=== PATIENT | female | born 1940 | race Two or more races ===

== ENCOUNTER 2024-06-24 19:23 | Emergency (ER) | payer OTHER, SELFPAY ==
[2024-06-24 19:26] VITALS: BMI 24.6
--- NOTE | 2024-06-24 19:40 | PC.NURSE ---
no answer in lobby when called for vital signs
--- NOTE | 2024-06-24 19:57 | PC.NURSE ---
no answer in lobby when called for vital signs
--- NOTE | 2024-06-24 20:14 | PC.NURSE ---
no answer in lobby when called for vital signs
== END 2024-06-24 20:55 | disposition left against medical advice (07) ==
LOC: SERX 20:27
PROVIDERS: Emergency Provider Emergency Medicine
DX: Z53.21 Procedure and treatment not carried out due to patient leaving prior to being seen by health care provider (principal)

== ENCOUNTER 2024-07-02 06:19 | Emergency (ER) | payer OTHER, MEDICAID, SELFPAY ==
[2024-07-02 06:20] VITALS: TEMP 36.7
--- NOTE | 2024-07-02 06:30 | EKG_ITS ---
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
--- NOTE | 2024-07-02 06:31 | PD.EDRME ---
Rapid Medical Screening Exam RME Arrival date/time: 07/02/24 06:19 83-year-old female presents the emergency department today for complaint of upper abdominal pain and heartburn Chief Complaint: Abdominal Pain Time Seen by Provider: 07/02/24 06:24
--- NOTE | 2024-07-02 06:32 | XR_ITS ---
Examination: CT abdomen and pelvis without contrast. Coronal 3-D reconstructions. Sagittal 2-D reconstructions. Date and time of exam:July 02, 2024 0736 hours INDICATIONS: Epigastric pain beginning several days ago CTDI: vol (mGy): 6.44 DLP: (mGycm): 253 Technique: Axial images of the abdomen have been obtained, 3 mm slice thickness Intravenous contrast material has not been administered. Low dose protocols were performed. One or more of the following dose reduction techniques were used; automated exposure control, adjustment of the mA and/or KV according to patient size, use of iterative reconstruction technique. Findings: No focal liver lesions Patient motion obscures gallbladder detail Spleen is not enlarged No pancreatic mass Aorta normal size No hydronephrosis or renal calculi No bowel obstruction Abundant stool throughout the colon No diverticulitis Atrophic uterus No adnexal mass Contracted urinary bladder Severe osteopenia with grade 1 anterolisthesis L5 on S1 IMPRESSION: The entire study is significantly limited by continual patient motion No renal or ureteral calculi, no hydronephrosis No bowel obstruction
--- NOTE | 2024-07-02 06:32 | XR_ITS ---
Examination: Abdomen sonogram, Limited Date and time of exam: July 02, 2024 0745 hours INDICATIONS: Right upper abdominal pain one month, severe today Technique: Real-time negrete scale transabdominal sonographic images of the upper abdomen obtained. Findings: Normal gallbladder Normal common bile duct 0.3 cm Pancreas obscured by bowel gas Liver 14 cm no focal liver lesions Normal hepatopedal portal venous flow Patent IVC IMPRESSION: Negative examination
[2024-07-02] MEDS: METOCLOPRAMIDE 5 MG TABLET 10 MG PO (06:52)
[2024-07-02 07:06] LABS: Basophils % (Auto) 0 % (0-2.5); Eosinophils # (Auto) 0.1 Thou/mm3 (0.0-0.5); Eosinophils % (Auto) 2 % (0-10); Hematocrit 37.1 % (36.0-46.0); Hemoglobin 12.7 g/dL (12.0-16.0); Immature Granulocytes % (Auto) 0 % (0-0); Immature Granulocytes Auto 0.01 Thou/mm3 (0.00-0.00); Lymphocytes # (Auto) 1.1 Thou/mm3 (1.0-4.8); Lymphocytes % (Auto) 34 % (10-50); Mean Corpuscular HGB Conc 34.2 g/dl (31.0-37.0); Mean Corpuscular Hemoglobin 32.1 pg (25.0-35.0); Mean Corpuscular Volume 94 fL (80-100); Monocytes # (Auto) 0.4 Thou/mm3 (0.0-0.8); Monocytes % (Auto) 11 % (0-12); Neutrophils # (Auto) 1.7 Thou/mm3 (1.8-7.7); Neutrophils % (Auto) 52 % (37-80); Nucleated Red Blood Cell % 0 /100 WBC (0); Platelet Count 152 Thou/mm3 (140-440); RDW Standard Deviation 42.8 fL (36.4-46.3); Red Blood Count 3.96 Miln/mm3 (4.00-5.20); White Blood Count 3.3 Thou/mm3 (3.6-11.0)
[2024-07-02 07:09] VITALS: BP 144/70; PULSE 70; RESP 18; TEMP 36.6; O2SAT 95
[2024-07-02 07:20] VITALS: BMI 24.5
[2024-07-02 07:32] LABS: Collection Type, Urine Clean Catch; Squamous Epithelial Cell,Urine 0 /hpf (0-5)
[2024-07-02 07:34] LABS: Alanine Aminotransferase 9 U/L (10-49); Albumin, Serum 4.2 gm/dL (3.4-4.8); Albumin/Globulin Ratio 1.7 (1.2-2.2); Alkaline Phosphatase 57 U/L (46-116); Anion Gap 6 (7-16); Aspartate Amino Transferase 16 U/L (0-34); BUN/Creatinine Ratio 23 Ratio (12-20); Bilirubin,Total 0.7 mg/dL (0.3-1.2); Blood Urea Nitrogen 18 mg/dL (9-23); Calcium 9.9 mg/dL (8.3-10.6); Calcium (Corrected) 9.9 mg/dL (8.5-10.1); Carbon Dioxide 30.2 mMol/L (20.0-31.0); Chloride 106 mMol/L (98-107); Creatinine (Component) 0.8 mg/dL (0.6-1.3); Estimated Creatinine Clearance 42.8 mL/min (>60); Globulin 2.5 gm/dL (2.3-3.5); Glucose 93 mg/dL (74-106); Lipase 42 U/L (12-53); Osmolality,Calculated 285 (275-295); Potassium 3.9 mMol/L (3.4-5.1); Sodium 142 mMol/L (136-145); Total Protein 6.7 gm/dL (5.7-8.2); Troponin I < 0.002 ng/mL (0.0-0.045); eGFR > 60 See Note
[2024-07-02 07:38] LABS: Bilirubin,Urine Negative (Negative); Clarity,Urine Clear (Clear/Hazy); Color,Urine Colorless (Lt Yel-Yel); Glucose, Urine Negative (Negative); Ketones,Urine Negative (Negative)
[2024-07-02 07:39] LABS: Blood,Urine Negative (Negative); Culture Indicated,Urine Not Indicated; Leukocyte Esterase,Urine Negative (Negative); Nitrite,Urine Negative (Negative); Protein,Urine Negative (Neg - Trace); RBC,Urine 3 /hpf (0-3); Urobilinogen,Urine Negative mg/dL (0.0-1.0); WBC,Urine 4 /hpf (0-5)
[2024-07-02 08:57] VITALS: BP 149/65; PULSE 64; RESP 14; TEMP 36.5; O2SAT 97
[2024-07-02] MEDS: LIDOCAINE VISCOUS 2% 15 ML UDC PO (09:57)
[2024-07-02] MEDS: MG HYD/AL HYD/SIME (Maalox Reg) SUSP 30 ML UDC PO (09:57)
[2024-07-02] MEDS: ACETAMINOPHEN 325 MG TABLET 650 MG PO (09:58)
[2024-07-02 10:33] VITALS: BP 137/68; PULSE 68; RESP 18; TEMP 36.6; O2SAT 96
--- NOTE | 2024-07-02 10:47 | PD.EDABDPN ---
ED Abdominal Pain RME/HPI General Chief Complaint: Abdominal Pain Stated complaint: HEARTBURN, ABD PAIN Time seen by provider: 07/02/24 06:24 Arrival date/time: 07/02/24 06:19 RME / HPI RME / HPI narrative: 07/02/24 06:19 83-year-old female presents the emergency department today for complaint of upper abdominal pain and heartburn DR. REYNOSO MAIN ED EVALUATION 83 year old female with history of gastritis presents to the ED brought in by daughter for evaluation of abdominal pain beginning yesterday. Pain described as a burning sensation that initially was located most to the epigastric region. However, today pain is radiating down just below umbilicus, rating as moderate. No nausea or vomiting reported. No fevers, chills. No diarrhea, constipation. Daughter mentioned patient is on Omeprazole 40mg daily and Mylanta and Viscous Lidocaine as needed. Patient states she last had a bowel movement this morning and normal for her. States she has not passed gas today. Related Data Home Medications ?Medication ?Instructions ?Recorded ?Confirmed albuterol sulfate 90 mcg/actuation 1 puff inhalation Q4HR PRN asthma 10/05/21 02/21/22 aerosol inhaler ibandronate 150 mg tablet 150 mg PO QDAY 10/05/21 02/21/22 meloxicam 15 mg tablet 15 mg PO QPM 02/21/22 02/21/22 montelukast 10 mg tablet 10 mg PO QPM 02/21/22 02/21/22 silver sulfadiazine 1 % topical See Rx Instructions .Route .COMPLEX 02/21/22 02/21/22 cream (SSD) Previous Rx's ?Medication ?Instructions ?Recorded guaifenesin 100 mg/5 mL oral 100 mg (5 mL) PO Q4H PRN 02/21/22 liquid (Tussin) congestion #473 mL methocarbamol 750 mg tablet 750 mg PO Q8H #20 tabs 08/16/22 sucralfate 100 mg/mL oral 10 ml PO QID #400 mL 07/17/23 suspension (Carafate) sucralfate 100 mg/mL oral 10 ml PO TID 3 days #90 mL 07/02/24 suspension (Carafate) Allergies Allergy/AdvReac Type Severity Reaction Status Date / Time No Known Allergies Allergy Verified 07/02/24 06:20 Review of Systems Review of Systems Narrative Review of Systems: GEN: No fever, no chills, no weight loss EYES: No discharge, no visual changes, no pain HEENT: No ear pain, no congestion, no sore throat PULM: No shortness of breath, no cough, no congestion CV: No chest pain, no dyspnea on exertion, no palpitations GI: No nausea, no vomiting, no diarrhea,+ pain, no constipation : No frequency, no urgency, no dysuria MUSC/SKEL: No joint pain, no back pain SKIN: No rash NEURO: No weakness, no headache Past Medical History Past Medical History CARDIAC: Positive Hypercholesterolemia RESPIRATORY: Positive Asthma GASTROINTESTINAL: Positive Gastroesophageal Reflux Disease MUSCULOSKELETAL: Positive Arthritis Surgical History SURGICAL: Positive Eye Surgery Social History SMOKING STATUS: Never smoker ED Exam Narrative Physical exam: GENERAL APPEARANCE: alert and oriented x 4, well-developed, well-nourished, no acute distress HEENT: Normocephalic, atraumatic; pupils equal, round, reactive to light; EOMI; mucous membranes pink, moist; oropharynx clear NECK: Supple LUNGS: CTABL; no wheezes, no rales, no rhonchi HEART: Regular rate, regular rhythm; normal S1, S2; no murmurs ABDOMEN: non distended; active BS; soft, no tenderness, no guarding, no rebound; no masses, no organomegaly, no hernia BACK: no CVA tenderness EXTREMITIES: atraumatic; no edema NEUROLOGIC: awake; alert and oriented x4; cranial nerves II-XII grossly intact; no focal sensory or motor deficits PSYCHIATRIC: appropriate mood and affect SKIN: warm, dry, normal color; no rashes Course Quality Measures none Orders Category Date Time Status EKG (ED ONLY) *Do not use* NOW Care 07/02/24 06:[address] abdomen pelvis wo con Stat Exams 07/02/24 06:32 Completed EKG (ED Only) Stat Exams 07/02/24 06:30 Draft US gall bladder Stat Exams 07/02/24 06:32 Completed CBC Stat Lab 07/02/24 06:47 Completed Comprehensive Metabolic Panel Stat Lab 07/02/24 06:47 Completed Lipase Stat Lab 07/02/24 06:47 Completed Troponin I Stat Lab 07/02/24 06:47 Completed UA, C/S IF [Urinalysis, C/S if Indicated] Stat Lab 07/02/24 07:14 Completed Acetaminophen Tab [Tylenol Tab] Med 07/02/24 09:47 Discontinued 650 mg PO X1 ONE Lidocaine 2% Viscous [Xylocaine 2% Viscous] Med 07/02/24 09:46 Discontinued 15 ml PO X1 ONE Metoclopramide [Reglan] Med 07/02/24 06:30 Discontinued 10 mg PO X1 ONE Sucralfate Susp [Carafate Susp] Med 07/02/24 09:46 Discontinued 1 gm PO X1 ONE mg Hyd/Al Hyd/Prema Susp [Maalox Susp] Med 07/02/24 09:46 Discontinued 30 ml PO X1 ONE Vital Signs Vital signs: Vital Signs Temperature 98.0 F 07/02/24 06:20 Abdominal Pain MDM MDM Narrative MDM Narrative:: Farida Parker am scribing for and in the presence of Dr. Reynoso. 1150: Patient reports feeling better after GI cocktail and Sucralfate. Patients daughter mentioned they have an appointment with PCP on 07/09/2024 and states she will be requesting an EGD to further assess symptoms. We reviewed all the results, analysis, and treatment plans. Patient is amenable to discharge. Strict return precautions were outlined. Patient was discharged in stable condition. Patient data External records reviewed:: [facility] previous records (I reviewed ED visit on 07/17/2023 for abdominal pain) Clinical information provided by:: patient Social determinants that could affect healthcare access:: none Patient has the following chronic illnesses:: Gastritis How is presenting disease/condition affected by chronic disease/condition?: exacerbated by Evaluation data The following diagnostics were reviewed and interpreted by me:: lab results, radiology exam(s) and EKG tracing(s) (EKG @ 06:37 am. Sinus rhythm, rate 72, no acute ischemic changes, no STEMI. ) Lab and/or radiology exams considered but not ordered:: None Interpretation Summary: Ordering Physician: Amari GARCIA)Jamil NP Date of Service: 07/02/24 Procedure(s): CT abdomen pelvis wo con Accession Number(s): [id number] cc: Jamil Fitzpatrick NP, NP; Alexa BirminghamP; Gunnar Gatica MD~ Examination: CT abdomen and pelvis without contrast. Coronal 3-D reconstructions. Sagittal 2-D reconstructions. Date and time of exam:July 02, 2024 0736 hours INDICATIONS: Epigastric pain beginning several days ago CTDI: vol (mGy): 6.44 DLP: (mGycm): 253 Technique: Axial images of the abdomen have been obtained, 3 mm slice thickness Intravenous contrast material has not been administered. Low dose protocols were performed. One or more of the following dose reduction techniques were used; automated exposure control, adjustment of the mA and/or KV according to patient size, use of iterative reconstruction technique. Findings: No focal liver lesions Patient motion obscures gallbladder detail Spleen is not enlarged No pancreatic mass Aorta normal size No hydronephrosis or renal calculi No bowel obstruction Abundant stool throughout the colon No diverticulitis Atrophic uterus No adnexal mass Contracted urinary bladder Severe osteopenia with grade 1 anterolisthesis L5 on S1 IMPRESSION: The entire study is significantly limited by continual patient motion No renal or ureteral calculi, no hydronephrosis No bowel obstruction Dictated By: Gunnar Gatica MD Signed By: <Electronically signed by Gunnar Gatica MD in OV>07/02/24 0758 Ordering Physician: Jamil Fitzpatrick NP, NP Date of Service: 07/02/24 Procedure(s): US gall bladder Accession Number(s): [id number] cc: Jamil Fitzpatrick NP, NP; Alexa BirminghamP; Gunnar Gatica MD~ Examination: Abdomen sonogram, Limited Date and time of exam: July 02, 2024 0745 hours INDICATIONS: Right upper abdominal pain one month, severe today Technique: Real-time negrete scale transabdominal sonographic images of the upper abdomen obtained. Findings: Normal gallbladder Normal common bile duct 0.3 cm Pancreas obscured by bowel gas Liver 14 cm no focal liver lesions Normal hepatopedal portal venous flow Patent IVC IMPRESSION: Negative examination Dictated By: Gunnar Gatica MD Signed By: <Electronically signed by Gunnar Gatica MD in OV>07/02/24 0923 Medications / Prescriptions Medications or Prescriptions considered but not ordered:: None Medication administrations:: Medication Administration History Discontinued Medications Acetaminophen (Acetaminophen 325 Mg Tablet) 650 mg PO X1 ONE Stop: 07/02/24 09:48 Last Admin: 07/02/24 09:58 Dose: 650 mg Documented By: GM Al Hydrox/Mg Hydrox/Simethicone (Mg Hyd/Al Hyd/Prema (Maalox Reg) Susp 30 Ml Udc) 30 ml PO X1 ONE Stop: 07/02/24 09:47 Last Admin: 07/02/24 09:57 Dose: 30 ml Documented By: GM Lidocaine HCl (Lidocaine Viscous 2% 15 Ml Udc) 15 ml PO X1 ONE Stop: 07/02/24 09:47 Last Admin: 07/02/24 09:57 Dose: 15 ml Documented By: GM Metoclopramide HCl (Metoclopramide 5 Mg Tablet) 10 mg PO X1 ONE Stop: 07/02/24 06:31 Last Admin: 07/02/24 06:52 Dose: 10 mg Documented By: CP Sucralfate (Sucralfate Susp 1 Gm/10 Ml Udc) 1 gm PO X1 ONE Stop: 07/02/24 09:47 Last Admin: 07/02/24 11:25 Dose: 1 gm Documented By: GM See above Consultations Consultation(s) initiated? (list below): No Diagnosis Differential diagnosis abdominal pain: abdominal pain, calculus of kidney, constipation, diverticulitis, gastroenteritis, small bowel obstruction and other (gastritis) Most likely diagnosis given after review of the tests above:: Gastritis Admission Indicated Admission indicated?: not indicated Admission Request Was there a request for admission?: No Disposition Plan Disposition Plan: Discharge Discharge Attestation Discharge Attestation: The patient and all family members were given an opportunity to ask questions and understood the discharge instructions. Discharge instructions specifically effects, indications for sooner follow up or return to the emergency department, and the expected course of current diagnosis. Patient condition: Stable Discharge Plan Plan Patient Disposition: HOME (Self Care) Prescriptions/Referrals Prescriptions/Med Rec: New sucralfate [Carafate] 100 mg/mL suspension 10 ml PO TID 3 Days Qty: 90 0RF Rx Instructions: swish in mouth and swallow; use after food/drink No Action albuterol sulfate 90 mcg/actuation HFA aerosol inhaler 1 puff INHALATION Q4HR PRN (Reason: asthma ) Patient Comments: TOME GRACIA INHALACI N POR V A ORAL CADA CUATRO HORAS CUANDO SEA NECESARIO ibandronate 150 mg tablet 150 mg PO QDAY Patient Comments: TOME GRACIA TABLETA POR V A ORAL GRACIA VEZ CADA 30 LARA silver sulfadiazine [SSD] 1 % cream See Rx Instructions .ROUTE .COMPLEX Patient Comments: APPLY TO SKIN/BURN AREA ONCE A DAY Rx Instructions: APPLY TO SKIN/BURN AREA ONCE A DAY meloxicam 15 mg tablet 15 mg PO QPM Patient Comments: TOME 1 TABLETA POR LA BOCA EN LA NOCHE PARA ARTRITIS montelukast 10 mg tablet 10 mg PO QPM Patient Comments: TOME 1 TABLETA POR LA BOCA EN LA NOCHE PARA ASTHMA guaifenesin [Tussin] 100 mg/5 mL liquid 100 mg PO Q4H PRN (Reason: congestion) Qty: 473 0RF sucralfate [Carafate] 100 mg/mL suspension 10 ml PO QID Qty: 400 0RF Rx Instructions: swish in mouth and swallow; use after food/drink methocarbamol 750 mg tablet 750 mg PO Q8H Qty: 20 0RF Referrals: Alexa Birmingham FNP [Primary Care Provider] - In 1 week Problem List Clinical Impression: Gastritis Patient/Caregiver Discharge Instructions Education Materials: ED Gastritis (Adult) Print Language: Hungarian Stand Alone Forms: Casie Award Info., Patient Portal Info Letter
[2024-07-02] MEDS: SUCRALFATE SUSP 1 GM/10 ML UDC PO (11:25)
[2024-07-02 12:20] VITALS: BP 127/58; PULSE 64; RESP 15; TEMP 36.6; O2SAT 96
== END 2024-07-02 12:23 | disposition home or self-care (01) ==
PROVIDERS: Nurse Practitioner Primary Care; Emergency Provider Emergency Medicine; PCP Registered Nurse Community Health
DX: K29.70 Gastritis, unspecified, without bleeding (principal); R10.13 Epigastric pain; R10.11 Right upper quadrant pain; R94.31 Abnormal electrocardiogram [ECG] [EKG]; E78.00 Pure hypercholesterolemia, unspecified
CPT/HCPCS: 36415; 74176; 76705; 80053; 81001; 83690; 84484; 85025; 93005; 99284; J3490; A9270

== ENCOUNTER 2024-09-04 08:02 | Emergency (ER) | payer MEDICAID, SELFPAY ==
[2024-09-04 08:16] VITALS: BP 136/78; PULSE 73; RESP 19; TEMP 36.6; O2SAT 95; BMI 24.0
[2024-09-04] MEDS: METOCLOPRAMIDE 5 MG TABLET PO (09:48)
[2024-09-04] MEDS: LIDOCAINE VISCOUS 2% 15 ML UDC PO (09:49)
[2024-09-04] MEDS: MG HYD/AL HYD/SIME (Maalox Reg) SUSP 30 ML UDC PO (09:49)
[2024-09-04 10:43] VITALS: BP 142/65; PULSE 65; RESP 19; TEMP 36.6; O2SAT 96
--- NOTE | 2024-09-04 11:08 | PD.EDABDPN ---
ED Abdominal Pain RME/HPI General Chief Complaint: Abdominal Pain Stated complaint: Burning middle upper abdomen X 2 months Time seen by provider: 09/04/24 08:18 Arrival date/time: 09/04/24 08:02 83-year-old female presents the emergency department today for complaint of upper abdominal pain and heartburn Pain described as a burning sensation that initially was located most to the epigastric region. However, today pain is radiating down just below umbilicus, rating as moderate. No nausea or vomiting reported. No fevers, chills. No diarrhea, constipation. Daughter mentioned the patient does have a recent endoscopy she is awaiting her results from [place].patient is on Omeprazole 40mg daily and Mylanta and Viscous Lidocaine as needed. Patient states she last had a bowel movement this morning and normal for her. States she has not passed gas today. Source: patient Related Data Home Medications ?Medication ?Instructions ?Recorded ?Confirmed albuterol sulfate 90 mcg/actuation 1 puff inhalation Q4HR PRN asthma 10/05/21 02/21/22 aerosol inhaler ibandronate 150 mg tablet 150 mg PO QDAY 10/05/21 02/21/22 meloxicam 15 mg tablet 15 mg PO QPM 02/21/22 02/21/22 montelukast 10 mg tablet 10 mg PO QPM 02/21/22 02/21/22 silver sulfadiazine 1 % topical See Rx Instructions .Route .COMPLEX 02/21/22 02/21/22 cream (SSD) Previous Rx's ?Medication ?Instructions ?Recorded guaifenesin 100 mg/5 mL oral 100 mg (5 mL) PO Q4H PRN 02/21/22 liquid (Tussin) congestion #473 mL methocarbamol 750 mg tablet 750 mg PO Q8H #20 tabs 08/16/22 sucralfate 100 mg/mL oral 10 ml PO QID #400 mL 07/17/23 suspension (Carafate) lidocaine HCl 2 % mucosal solution 5 ml PO BID PRN abdominal pain 07/02/24 #100 mL Allergies Allergy/AdvReac Type Severity Reaction Status Date / Time No Known Allergies Allergy Verified 09/04/24 08:09 Review of Systems Review of Systems Systems Reviewed: All systems reviewed, normal except as documented Narrative Review of Systems: GEN: No fever, no chills, no weight loss EYES: No discharge, no visual changes, no pain HEENT: No ear pain, no congestion, no sore throat PULM: No shortness of breath, no cough, no congestion CV: No chest pain, no dyspnea on exertion, no palpitations GI: No nausea, no vomiting, no diarrhea,+ pain, no constipation : No frequency, no urgency, no dysuria MUSC/SKEL: No joint pain, no back pain SKIN: No rash NEURO: No weakness, no headache Course Quality Measures none Orders Category Date Time Status Lidocaine 2% Viscous [Xylocaine 2% Viscous] Med 09/04/24 08:32 Discontinued 15 ml PO X1 ONE Metoclopramide [Reglan] Med 09/04/24 08:32 Discontinued 5 mg PO X1 ONE mg Hyd/Al Hyd/Prema Susp [Maalox Susp] Med 09/04/24 08:32 Discontinued 30 ml PO X1 ONE Vital Signs Vital signs: Vital Signs Temperature 97.8 F 09/04/24 08:16 Pulse Rate 73 09/04/24 08:16 Respiratory Rate 19 09/04/24 08:16 Blood Pressure 136/78 H 09/04/24 08:16 Pulse Oximetry (%) 95 09/04/24 08:16 Oxygen Delivery Method Room Air 09/04/24 08:16 Abdominal Pain MDM MDM Narrative MDM Narrative:: Patient reports feeling better after GI cocktail. Patients daughter mentioned they have an appointment with PCP In 3 weeks for her endoscopy results.No labs completed today due to patient's symptoms only gastritis daughter states she will follow up with PCP on Friday.. Patient is amenable to discharge. Strict return precautions were outlined. Patient was discharged in stable condition. Patient data External records reviewed:: [facility] previous records (I reviewed ED visit on 07/17/2023 for abdominal pain) Clinical information provided by:: patient Social determinants that could affect healthcare access:: none Patient has the following chronic illnesses:: Gastritis How is presenting disease/condition affected by chronic disease/condition?: exacerbated by Evaluation data The following diagnostics were reviewed and interpreted by me:: other (specify) Lab and/or radiology exams considered but not ordered:: None Interpretation Summary: none Medications / Prescriptions Medications or Prescriptions considered but not ordered:: None Medication administrations:: Medication Administration History Discontinued Medications Al Hydrox/Mg Hydrox/Simethicone (Mg Hyd/Al Hyd/Prema (Maalox Reg) Susp 30 Ml Udc) 30 ml PO X1 ONE Stop: 09/04/24 08:33 Last Admin: 09/04/24 09:49 Dose: 30 ml Documented By: DILIP Lidocaine HCl (Lidocaine Viscous 2% 15 Ml Udc) 15 ml PO X1 ONE Stop: 09/04/24 08:33 Last Admin: 09/04/24 09:49 Dose: 15 ml Documented By: DILIP Metoclopramide HCl (Metoclopramide 5 Mg Tablet) 5 mg PO X1 ONE Stop: 09/04/24 08:33 Last Admin: 09/04/24 09:48 Dose: 5 mg Documented By: DILIP See above Consultations Consultation(s) initiated? (list below): No Diagnosis Differential diagnosis abdominal pain: abdominal pain, calculus of kidney, constipation, diverticulitis, gastroenteritis, small bowel obstruction and other (gastritis) Most likely diagnosis given after review of the tests above:: Gastritis Admission Indicated Admission indicated?: not indicated Admission Request Was there a request for admission?: No Disposition Plan Disposition Plan: Discharge Discharge Attestation Discharge Attestation: The patient and all family members were given an opportunity to ask questions and understood the discharge instructions. Discharge instructions specifically effects, indications for sooner follow up or return to the emergency department, and the expected course of current diagnosis. Patient condition: Stable Discharge Plan Plan Patient Disposition: HOME (Self Care) Patient condition on transfer: Stable Prescriptions/Referrals Prescriptions/Med Rec: No Action albuterol sulfate 90 mcg/actuation HFA aerosol inhaler 1 puff INHALATION Q4HR PRN (Reason: asthma ) Patient Comments: TOME GRACIA INHALACI N POR V A ORAL CADA CUATRO HORAS CUANDO SEA NECESARIO ibandronate 150 mg tablet 150 mg PO QDAY Patient Comments: TOME GRACIA TABLETA POR V A ORAL GRACIA VEZ CADA 30 LARA silver sulfadiazine [SSD] 1 % cream See Rx Instructions .ROUTE .COMPLEX Patient Comments: APPLY TO SKIN/BURN AREA ONCE A DAY Rx Instructions: APPLY TO SKIN/BURN AREA ONCE A DAY meloxicam 15 mg tablet 15 mg PO QPM Patient Comments: TOME 1 TABLETA POR LA BOCA EN LA NOCHE PARA ARTRITIS montelukast 10 mg tablet 10 mg PO QPM Patient Comments: TOME 1 TABLETA POR LA BOCA EN LA NOCHE PARA ASTHMA guaifenesin [Tussin] 100 mg/5 mL liquid 100 mg PO Q4H PRN (Reason: congestion) Qty: 473 0RF sucralfate [Carafate] 100 mg/mL suspension 10 ml PO QID Qty: 400 0RF Rx Instructions: swish in mouth and swallow; use after food/drink lidocaine HCl 2 % solution 5 ml PO BID PRN (Reason: abdominal pain) Qty: 100 0RF methocarbamol 750 mg tablet 750 mg PO Q8H Qty: 20 0RF Referrals: Alexa Birmingham FNP [Primary Care Provider] - In 1 week Problem List Clinical Impression: Chronic gastritis Patient/Caregiver Discharge Instructions Discharge Activity: activity as tolerated Education Materials: ED Gastritis (Adult) Additional Instructions: Advised to keep her 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 Medication sent to pharmacy and pt should take as directed. Pt only prescribed a short course to see if it helps symptoms. Pt advised to avoid eating fatty foods, spicy foods, mint, chocolate or large meals, lying down after eating, wearing tight garments or engaging in activities which would increase the pressure in the abdomen. It is better to eat smaller meals and void drinking citrus fruit juices or caffeine-containing drinks. Er Precautions given to return if any worsening symptoms or change in condition Print Language: Serbian Stand Alone Forms: Casie Award Info., Patient Portal Info Letter PA/DIFFUSION FURNACE OPERATOR Supervising Physician MATTI/DIFFUSION FURNACE OPERATOR Supervising Physician: melia
== END 2024-09-04 11:16 | disposition home or self-care (01) ==
PROVIDERS: Emergency Provider Family Medicine; PCP Registered Nurse Community Health
DX: K29.50 Unspecified chronic gastritis without bleeding (principal)
CPT/HCPCS: 99283; J3490; A9270

== ENCOUNTER 2025-01-03 10:40 | Emergency (ER) | payer OTHER, MEDICAID, SELFPAY ==
[2025-01-03 10:41] VITALS: BMI 22.4
--- NOTE | 2025-01-03 11:07 | XR_ITS ---
EXAMINATION: AP chest single view TECHNIQUE: Portable sitting AP chest single view Date and time: January 03, 2025 1119 hours INDICATIONS: Shortness of breath today. FINDINGS: Moderate hyperexpansion No significant cardiac enlargement No pneumonia or pulmonary edema Severe osteopenia IMPRESSION: COPD with moderate hyperexpansion No pneumonia or pulmonary edema
--- NOTE | 2025-01-03 11:07 | XR_ITS ---
Examination: CT abdomen and pelvis without contrast. Coronal 3-D reconstructions. Sagittal 2-D reconstructions. Date and time of exam: January 03, 2025, 1348 hours, comparison July 02, 2024 INDICATIONS: Generalized abdominal pain today CTDI: vol (mGy): 0.75 DLP: (mGycm): 214 Technique: Axial images of the abdomen have been obtained, 3 mm slice thickness Intravenous contrast material has not been administered. Low dose protocols were performed. One or more of the following dose reduction techniques were used; automated exposure control, adjustment of the mA and/or KV according to patient size, use of iterative reconstruction technique. Findings: Mild enlargement cardiac contour No focal liver or splenic lesion No gallstones No pancreatic mass Aorta is not enlarged No renal or ureteral calculi, no hydronephrosis No ascites No pericecal inflammatory change No bowel obstruction or diverticulitis Retroverted atrophic uterus with calcifications No bladder mass Severe osteopenia IMPRESSION: Nonobstructive bowel gas pattern. No renal or ureteral calculi, no hydronephrosis No CT findings of appendicitis or diverticulitis
[2025-01-03 11:11] VITALS: BP 131/80; PULSE 67; RESP 16; TEMP 36.4; O2SAT 96
--- NOTE | 2025-01-03 11:13 | PD.EDABDPN ---
ED Abdominal Pain RME/HPI General Chief Complaint: Abdominal Pain Stated complaint: ABD PAIN SENT BY PMD Time seen by provider: 01/03/25 11:04 Arrival date/time: 01/03/25 10:40 RME / HPI RME / HPI narrative: See [facility] for Dr. Durbin's HPI documentation. Related Data Home Medications ?Medication ?Instructions ?Recorded ?Confirmed albuterol sulfate 90 mcg/actuation 1 puff inhalation Q4HR PRN asthma 10/05/21 02/21/22 aerosol inhaler ibandronate 150 mg tablet 150 mg PO QDAY 10/05/21 02/21/22 meloxicam 15 mg tablet 15 mg PO QPM 02/21/22 02/21/22 montelukast 10 mg tablet 10 mg PO QPM 02/21/22 02/21/22 silver sulfadiazine 1 % topical See Rx Instructions .Route .COMPLEX 02/21/22 02/21/22 cream (SSD) Previous Rx's ?Medication ?Instructions ?Recorded guaifenesin 100 mg/5 mL oral 100 mg (5 mL) PO Q4H PRN 02/21/22 liquid (Tussin) congestion #473 mL methocarbamol 750 mg tablet 750 mg PO Q8H #20 tabs 08/16/22 sucralfate 100 mg/mL oral 10 ml PO QID #400 mL 07/17/23 suspension (Carafate) lidocaine HCl 2 % mucosal solution 5 ml PO BID PRN abdominal pain 07/02/24 #100 mL acetaminophen 300 mg-codeine 30 mg 1 tab PO Q6HR PRN pain #20 tabs 01/03/25 tablet ondansetron 4 mg disintegrating 4 mg PO TID PRN nausea and 01/03/25 tablet vomiting 30 days #10 tabs Allergies Allergy/AdvReac Type Severity Reaction Status Date / Time No Known Allergies Allergy Verified 01/03/25 10:45 Review of Systems Review of Systems Systems Reviewed: All systems reviewed, normal except as documented Past Medical History Past Medical History CARDIAC: Positive Hypercholesterolemia RESPIRATORY: Positive Asthma GASTROINTESTINAL: Positive Gastroesophageal Reflux Disease GENITOURINARY: Negative Renal Disease MUSCULOSKELETAL: Positive Arthritis ENDOCRINE: Negative Diabetes Mellitus Type 1 or Diabetes Mellitus Type 2 HEMATOLOGIC: Negative Sickle Cell Disease Surgical History SURGICAL: Positive Eye Surgery Social History SMOKING STATUS: Never smoker ED Exam Narrative Physical exam: See [facility] for Dr. Durbin's physical exam documentation. Course Quality Measures none Orders Category Date Time Status Saline [Insert IV] NOW Care 01/03/25 11:06 Completed Straight [In and Out Catheter] X1 Care 01/03/25 11:[address] abdomen pelvis wo con Stat Exams 01/03/25 11:07 Completed US gall bladder Stat Exams 01/03/25 13:18 Completed US pelvic complete Stat Exams 01/03/25 13:02 Completed XR chest 1V portable Stat Exams 01/03/25 11:07 Completed Amylase Stat Lab 01/03/25 12:02 Completed BNP [B-Type Natriuretic Peptide] Stat Lab 01/03/25 12:02 Completed Beta Hydroxybutyrate Stat Lab 01/03/25 12:02 Completed Bilirubin,Direct Stat Lab 01/03/25 12:02 Completed Blood Culture (Lab) Stat Lab 01/03/25 11:07 Received CBC Stat Lab 01/03/25 12:02 Completed CMP [Comprehensive Metabolic Panel] Stat Lab 01/03/25 12:02 Completed CRP [C-Reactive Protein] Stat Lab 01/03/25 12:02 Completed ESR [Sed Rate (ESR)] Stat Lab 01/03/25 12:02 Completed Hemoglobin A1C [Glycohemoglobin w (eAG)] Stat Lab 01/03/25 12:02 Completed Lactate (Lactic Acid) Stat Lab 01/03/25 12:02 Completed Lipase Stat Lab 01/03/25 12:02 Completed Magnesium Stat Lab 01/03/25 12:02 Completed Procalcitonin Stat Lab 01/03/25 12:02 Completed TSH [Thyroid Stimulating Hormone] Stat Lab 01/03/25 12:02 Completed UA, C/S IF [Urinalysis, C/S if Indicated] Stat Lab 01/03/25 13:44 Completed Morphine* Inj Med 01/03/25 11:06 Discontinued 2 mg IV X1 ONE Ondansetron Inj [Zofran Inj] Med 01/03/25 11:06 Discontinued 4 mg IVP X1 ONE Sodium Chloride 0.9% 1000 ml [Ns] 1,000 ml Med 01/03/25 11:06 Discontinued IV 999 mls/hr Vital Signs Vital signs: Vital Signs Temperature 97.6 F 01/03/25 11:11 Pulse Rate 67 01/03/25 11:11 Respiratory Rate 16 01/03/25 11:11 Blood Pressure 131/80 H 01/03/25 11:11 Pulse Oximetry (%) 96 01/03/25 11:11 Oxygen Delivery Method Room Air 01/03/25 11:11 Pulse ox is 96% on room air which is adequate. Abdominal Pain MDM MDM Narrative MDM Narrative:: This section includes all my notes and documentations, including HPI, PE, and ED course. Corey Durbin MD HPI: 84 year old female here with several days of abdominal pain. She has trouble localizing the pain, seems to be in LLQ region. Occasional nausea. No vomiting. Eating normally. No fever. No urinary symptoms. No history of abdominal surgery. No other complaints. ROS: All negative except as documented in HPI. Physical Exam: General: Alert and oriented. No acute distress when remaining still. Eyes: Conjunctivae and lids clear. ENT: No nasal congestion. Neck: Supple. Heart: RRR. Lungs: No respiratory distress. Good air movement. No rhonchi, wheezing, rales. Abdomen: Soft with equivocal tenderness, difficult to localize. Normal bowel sounds. No distension. No rebound or guarding. Back: No CVA tenderness. Skin: Warm and dry. Neuro: Alert and oriented X 3. I reviewed all diagnostic test results: My interpretation of the chest x-ray is: NAD. My review of the US pelvis report is: No acute findings. My review of the US gallbladder report is: NAD. My review of the abdominal CT report is: No acute findings. Blood tests and urine tests are unremarkable. At this point, diagnoses include: Abdominal pain of unclear etiology Treatment here included: IVF Morphine 2 mg IV Zofran 4 mg IV Significant improvement noted. Recommended more outpatient workup. Based on my best medical judgment, made decision no further evaluation or treatment indicated at this time. Patient understands and agrees to the discharge instructions customized and printed, see below. Discharge Instructions from Dr. Durbin printed for you: 1. After extensive evaluation, exact cause of your abdominal pain was not determined. But there is no emergency or anything very serious. 2. And there is no serious infection. Such as pneumonia or urinary infection or COVID. 3. Try to eat regular nutritious meals. For good hydration, increase oral fluid and maintain clear urine. If dark or yellow, increase oral fluid. Zofran for nausea/vomiting. 4. See a private doctor on 01/05/2025 for recheck. To make sure there is no serious intra-abdominal condition, ask for help with more investigation not available here in the ER. Such as EGD or scoping the stomach, colonoscopy or scoping the colon, and referral to see assistant librarian. Ask to review all test results and official radiology reports, to make sure you receive all necessary follow-ups and monitoring. 5. Seek immediate medical care with worsening or with any concerns. Instrucciones de gabriel del Dr. Durbin impresas para usted: 1. Tras randi evaluaci?n exhaustiva, no se determin? la causa exacta de ku dolor abdominal. Sin embargo, no se trata de randi emergencia ni de nada grave. 2. No hay ninguna infecci?n grave, joycelyn neumon?a, infecci?n urinaria o COVID-19. 3. Procure comer regularmente alimentos nutritivos. Para randi buena hidrataci?n, aumente la ingesta de l?quidos y procure que ku orina sea heidy. Si la orina es oscura o amarilla, aumente la ingesta de l?quidos. [place] Zofran para las n?useas y los v?mitos. 4. Consulte a un m?dico particular el 05/01/2025 para randi revisi?n. Para descartar cualquier afecci?n intraabdominal grave, solicite pruebas adicionales que no est?n disponibles en urgencias, joycelyn randi endoscopia digestiva gabriel (GIN), randi colonoscopia y randi derivaci?n a un gastroenter?logo. Solicite revisar todos los resultados de las pruebas y los informes radiol?gicos oficiales para asegurarse de recibir el seguimiento y la monitorizaci?n necesarios. 5. Busque atenci?n m?dica inmediata si ku estado empeora o si marcosjayda eliud inquietud. Corey Durbin MD Patient data External records reviewed:: [facility] previous records Clinical information provided by:: patient Social determinants that could affect healthcare access:: none Patient has the following chronic illnesses:: Gastritis How is presenting disease/condition affected by chronic disease/condition?: exacerbated by Evaluation data The following diagnostics were reviewed and interpreted by me:: lab results and radiology exam(s) Lab and/or radiology exams considered but not ordered:: None Interpretation Summary: I reviewed all diagnostic test results: My interpretation of the chest x-ray is: NAD. My review of the US pelvis report is: No acute findings. My review of the US gallbladder report is: NAD. My review of the abdominal CT report is: No acute findings. Blood tests and urine tests are unremarkable. Medications / Prescriptions Medications or Prescriptions considered but not ordered:: None Medication administrations:: Medication Administration History Discontinued Medications Sodium Chloride (Ns) 1,000 mls @ 999 mls/hr IV .Q1H1M ONE Stop: 01/03/25 12:06 Last Infusion: 01/03/25 13:10 Dose: Infused Documented By: Admin: 01/03/25 12:09 Dose: 999 mls/hr Documented By: TM Morphine Sulfate (Morphine Sulf Inj 4 Mg/Ml Vial) 2 mg IV X1 ONE Stop: 01/03/25 11:07 Last Admin: 01/03/25 12:09 Dose: 2 mg Documented By: TM Ondansetron HCl (Ondansetron Inj 2 Mg/Ml Inj 2 Ml) 4 mg IVP X1 ONE; Protocol Stop: 01/03/25 11:07 Last Admin: 01/03/25 12:07 Dose: 4 mg Documented By: TM IVF Morphine 2 mg IV Zofran 4 mg IV Consultations Consultation(s) initiated? (list below): No Diagnosis Differential diagnosis abdominal pain: acute appendicitis, calculus of kidney, constipation, diverticulitis, endometriosis, gastroenteritis, pancreatitis, small bowel obstruction and other (gastritis) Most likely diagnosis given after review of the tests above:: Abdominal pain of unclear etiology Admission Indicated Admission indicated?: not indicated Explain why admission is indicated or not indicated:: With no condition needing emergent intervention, there was no indication for admission. Admission Request Was there a request for admission?: No Disposition Plan Disposition Plan: Discharge Discharge Attestation Discharge Attestation: The patient and all family members were given an opportunity to ask questions and understood the discharge instructions. Discharge instructions specifically effects, indications for sooner follow up or return to the emergency department, and the expected course of current diagnosis. Patient condition: Stable Discharge Plan Plan Patient Disposition: HOME (Self Care) Prescriptions/Referrals Prescriptions/Med Rec: New acetaminophen-codeine 300-30 mg tablet 1 tab PO Q6HR MDD 6 PRN (Reason: pain) Qty: 20 0RF ondansetron 4 mg tablet,disintegrating 4 mg PO TID PRN (Reason: nausea and vomiting) 30 Days Qty: 10 0RF No Action albuterol sulfate 90 mcg/actuation HFA aerosol inhaler 1 puff INHALATION Q4HR PRN (Reason: asthma ) Patient Comments: TOME RANDI INHALACI N POR V A ORAL CADA CUATRO HORAS CUANDO SEA NECESARIO ibandronate 150 mg tablet 150 mg PO QDAY Patient Comments: TOME RANDI TABLETA POR V A ORAL RANDI VEZ CADA 30 LARA silver sulfadiazine [SSD] 1 % cream See Rx Instructions .ROUTE .COMPLEX Patient Comments: APPLY TO SKIN/BURN AREA ONCE A DAY Rx Instructions: APPLY TO SKIN/BURN AREA ONCE A DAY meloxicam 15 mg tablet 15 mg PO QPM Patient Comments: TOME 1 TABLETA POR LA BOCA EN LA NOCHE PARA ARTRITIS montelukast 10 mg tablet 10 mg PO QPM Patient Comments: TOME 1 TABLETA POR LA BOCA EN LA NOCHE PARA ASTHMA guaifenesin [Tussin] 100 mg/5 mL liquid 100 mg PO Q4H PRN (Reason: congestion) Qty: 473 0RF sucralfate [Carafate] 100 mg/mL suspension 10 ml PO QID Qty: 400 0RF Rx Instructions: swish in mouth and swallow; use after food/drink lidocaine HCl 2 % solution 5 ml PO BID PRN (Reason: abdominal pain) Qty: 100 0RF methocarbamol 750 mg tablet 750 mg PO Q8H Qty: 20 0RF Referrals: Alexa Birmingham, [employer] [Primary Care Provider] - In 1 week Problem List Clinical Impression: Abdominal pain Patient/Caregiver Discharge Instructions Discharge Activity: activity as tolerated Education Materials: ED Abdominal Pain Unkn Cause Fem Additional Instructions: Discharge Instructions from Dr. Durbin printed for you: 1. After extensive evaluation, exact cause of your abdominal pain was not determined. But there is no emergency or anything very serious. 2. And there is no serious infection. Such as pneumonia or urinary infection or COVID. 3. Try to eat regular nutritious meals. For good hydration, increase oral fluid and maintain clear urine. If dark or yellow, increase oral fluid. Zofran for nausea/vomiting. 4. See a private doctor on 01/05/2025 for recheck. To make sure there is no serious intra-abdominal condition, ask for help with more investigation not available here in the ER. Such as EGD or scoping the stomach, colonoscopy or scoping the colon, and referral to see assistant librarian. Ask to review all test results and official radiology reports, to make sure you receive all necessary follow-ups and monitoring. 5. Seek immediate medical care with worsening or with any concerns. Instrucciones de gabriel del Dr. Durbin impresas para usted: 1. Tras randi evaluaci?n exhaustiva, no se determin? la causa exacta de ku dolor abdominal. Sin embargo, no se trata de randi emergencia ni de nada grave. 2. No hay ninguna infecci?n grave, joycelyn neumon?a, infecci?n urinaria o COVID-19. 3. Procure comer regularmente alimentos nutritivos. Para randi buena hidrataci?n, aumente la ingesta de l?quidos y procure que ku orina sea heidy. Si la orina es oscura o amarilla, aumente la ingesta de l?quidos. [place] Zofran para las n?useas y los v?mitos. 4. Consulte a un m?dico particular el 05/01/2025 para randi revisi?n. Para descartar cualquier afecci?n intraabdominal grave, solicite pruebas adicionales que no est?n disponibles en urgencias, joycelyn randi endoscopia digestiva gabriel (GIN), randi colonoscopia y randi derivaci?n a un gastroenter?logo. Solicite revisar todos los resultados de las pruebas y los informes radiol?gicos oficiales para asegurarse de recibir el seguimiento y la monitorizaci?n necesarios. 5. Busque atenci?n m?dica inmediata si ku estado empeora o si tiene alguna inquietud. Print Language: Kinyarwanda Stand Alone Forms: [employer] Award Info., Patient Portal Info Letter
[2025-01-03] MEDS: ONDANSETRON INJ 2 MG/ML INJ 2 ML 4 MG IVP (12:07)
[2025-01-03] MEDS: SODIUM CHLORIDE 0.9% 1000 ML 1,000 ML 999 ML IV (12:09)
[2025-01-03] MEDS: MORPHINE SULF INJ 4 MG/ML VIAL 2 MG IV (12:09)
[2025-01-03 12:15] LABS: Lactate (Lactic Acid) 0.8 mMol/L (0.4-2.0)
[2025-01-03 12:20] LABS: Beta Hydroxybutyrate 0.3 mmol/L (<0.6)
[2025-01-03 12:27] LABS: Basophils # (Auto) 0.0 Thou/mm3 (0.0-0.2); Basophils % (Auto) 0 % (0-2.5); Eosinophils # (Auto) 0.0 Thou/mm3 (0.0-0.5); Eosinophils % (Auto) 1 % (0-10); Hematocrit 39.8 % (36.0-46.0); Hemoglobin 13.1 g/dL (12.0-16.0); Immature Granulocytes Auto 0.01 Thou/mm3 (0.00-0.00); Lymphocytes # (Auto) 0.5 Thou/mm3 (1.0-4.8); Lymphocytes % (Auto) 11 % (10-50); Mean Corpuscular HGB Conc 32.9 g/dl (31.0-37.0); Mean Corpuscular Hemoglobin 32.0 pg (25.0-35.0); Mean Corpuscular Volume 97 fL (80-100); Monocytes # (Auto) 0.4 Thou/mm3 (0.0-0.8); Monocytes % (Auto) 8 % (0-12); Neutrophils # (Auto) 3.8 Thou/mm3 (1.8-7.7); Neutrophils % (Auto) 80 % (37-80); Nucleated Red Blood Cell # 0.00 Thou/mm3 (0.00-0.00); Nucleated Red Blood Cell % 0 /100 WBC (0); Platelet Count 153 Thou/mm3 (140-440); RDW Standard Deviation 44.8 fL (36.4-46.3); Red Blood Count 4.10 Miln/mm3 (4.00-5.20); White Blood Count 4.7 Thou/mm3 (3.6-11.0)
[2025-01-03 12:36] LABS: Glucose Estimated Average 94 mg/dL (80-131); Hemoglobin A1C 4.9 % Hgb (4.8-6.0)
[2025-01-03 12:46] LABS: B-Type Natriuretic Peptide 36 pg/mL (0-100)
[2025-01-03 13:00] LABS: Alanine Aminotransferase < 7 U/L (10-49); Albumin, Serum 4.3 gm/dL (3.4-4.8); Albumin/Globulin Ratio 2.4 (1.2-2.2); Alkaline Phosphatase 52 U/L (46-116); Amylase 37 U/L (30-118); Anion Gap 9 (7-16); Aspartate Amino Transferase 15 U/L (0-34); BUN/Creatinine Ratio 16 Ratio (12-20); Bilirubin,Direct 0.2 mg/dL (0.0-0.3); Bilirubin,Total 0.5 mg/dL (0.3-1.2); Blood Urea Nitrogen 13 mg/dL (9-23); C-Reactive Protein < 0.5 mg/dL (0.0-0.9); Calcium 10.0 mg/dL (8.3-10.6); Calcium (Corrected) 10.0 mg/dL (8.5-10.1); Carbon Dioxide 27.3 mMol/L (20.0-31.0); Chloride 107 mMol/L (98-107); Creatinine (Component) 0.8 mg/dL (0.6-1.3); Estimated Creatinine Clearance 38.3 mL/min (>60); Globulin 1.8 gm/dL (2.3-3.5); Glucose 88 mg/dL (74-106); Lipase 32 U/L (12-53); Magnesium 2.0 mg/dL (1.6-2.6); Osmolality,Calculated 284 (275-295); Potassium 4.3 mMol/L (3.4-5.1); Procalcitonin < 0.04 ng/ml (0.0-0.49); Sodium 143 mMol/L (136-145); Thyroid Stimulating Hormone 1.32 uIU/mL (0.55-4.78); Total Protein 6.1 gm/dL (5.7-8.2); eGFR > 60 See Note
--- NOTE | 2025-01-03 13:02 | XR_ITS ---
Examination: Pelvic ultrasound, transabdominal, complete Technique: Transabdominal ultrasound of the pelvis performed using grayscale imaging Date and time of exam: January 03, 2025, 1318 hours INDICATIONS: Abdominal pelvic pain today IMPRESSION: Uterus and ovaries are not visualized No free fluid in the pelvis No pelvic mass Pression: Negative for pelvic mass
[2025-01-03 13:05] LABS: Sed Rate (ESR) 2 mm/hr (0-30)
--- NOTE | 2025-01-03 13:18 | XR_ITS ---
Examination: Abdomen sonogram, Limited Date and time of exam: January 03, 2025, 1320 hours INDICATIONS: Onset abdominal pain today Technique: Real-time negrete scale transabdominal sonographic images of the upper abdomen obtained. Findings: Normal gallbladder Normal common bile duct 0.4 cm Pancreatic head 1.5 cm Liver 17 cm no focal liver lesions Normal hepatopetal portal venous flow Patent IVC IMPRESSION: Normal gallbladder Mild hepatomegaly
[2025-01-03 13:48] LABS: Collection Type, Urine Clean Catch; RBC,Urine 0 /hpf (0-3)
[2025-01-03 14:02] LABS: Bacteria,Urine Rare; Bilirubin,Urine Negative (Negative); Blood,Urine Negative (Negative); Clarity,Urine Clear (Clear/Hazy); Color,Urine Lt-Yellow (Lt Yel-Yel); Culture Indicated,Urine Not Indicated; Glucose, Urine Negative (Negative); Ketones,Urine Negative (Negative); Leukocyte Esterase,Urine Negative (Negative); Nitrite,Urine Negative (Negative); PH,Urine 6.0 (5.0-7.0); Protein,Urine Negative (Neg - Trace); Specific Gravity,Urine 1.010 (1.001-1.035); Squamous Epithelial Cell,Urine 1 /hpf (0-5); Urobilinogen,Urine Negative mg/dL (0.0-1.0); WBC,Urine < 1 /hpf (0-5)
[2025-01-03 14:13] VITALS: BP 146/55; PULSE 71; RESP 16; TEMP 36.4; O2SAT 96
== END 2025-01-03 15:41 | disposition home or self-care (01) ==
PROVIDERS: Emergency Provider Emergency Medicine; PCP Registered Nurse Community Health
DX: R10.32 Left lower quadrant pain (principal)
CPT/HCPCS: 36415; 71045; 74176; 76705; 76856; 80053; 81001; 82010; 82150; 82248; 83036; 83605; 83690; 83735; 83880; 84145; 84443; 85025; 85652; 86140; 87040; 96361; 96374; 99284; J2270; J2405; J7030